=== PATIENT | female | born 1985 | race Caucasian/White ===

== ENCOUNTER 2016-07-07 16:12 | Emergency (ER) | payer BC ==
[2016-01-21 12:39] VITALS: BMI 19.3
[~2016-07-07 16:12] MED LIST: DIFLUCAN150 MG PO; FLAGYL500 MG PO; HYDROCODON-ACE1 EAC7 PO; KEFLEX500 MG PO
[2016-07-07 17:07] LABS: BASOPHILS 0.1 % (0-2); EOSINOPHILS 1.8 % (0-7); HEMATOCRIT 27.4 % (36.0-48.0); HEMOGLOBIN 9.3 g/dL (12-16); IMMATURE GRANULOCYTES 0.2 % (0-5); LYMPHOCYTES 5.9 % (15-50); MCH 32.2 pg (26.0-34.0); MCHC 33.9 g/dL (31.0-37.0); MCV 94.8 fL (80.0-100.0); MONOCYTES 4.9 % (2-11); NEUTROPHILS 87.1 % (40-80); PLATELET COUNT 245 10x3/uL (130-400); RBC 2.89 10x6/uL (4.00-5.40); RDW 13.9 % (11.5-14.5)
[2016-07-07 17:27] LABS: APPEARANCE HAZY (CLEAR); BILIRUBIN NEGATIVE (NEGATIVE); COLOR YELLOW (YELLOW); GLUCOSE NEGATIVE (NEGATIVE); KETONE NEGATIVE (NEGATIVE); LEUKOCYTE ESTERASE NEGATIVE (NEGATIVE); NITRITE NEGATIVE (NEGATIVE); PROTEIN NEGATIVE (NEGATIVE); UROBILINOGEN NORMAL (NORMAL)
[2016-07-07 17:27] LABS: HCG URINE NEGATIVE (NEGATIVE)
[2016-07-07 17:36] LABS: ALBUMIN 2.3 g/dL (3.4-5.0); ANION GAP 11.3 mmol/L (8-16); CALCIUM 7.5 mg/dL (8.5-10.1); CARBON DIOXIDE 27.5 mmol/L (21.0-32.0); POTASSIUM - SERUM 3.8 mmol/L (3.5-5.1); PROTEIN - SERUM 5.3 g/dL (6.4-8.2)
[2016-07-07 17:40] LABS: BILIRUBIN - TOTAL 0.06 mg/dL (0.2-1.3)
== END 2016-07-07 19:08 | disposition home or self-care (01) ==
LOC: D.ER 16:12
PROVIDERS: Emergency Medicine; Nurse Practitioner Family
DX: R50.9 Fever, unspecified (principal); Z93.3 Colostomy status; C20 Malignant neoplasm of rectum

== ENCOUNTER → 2017-02-11 10:48 | Outpatient (CLI) | payer BC ==
[2016-01-21 12:39] VITALS: BMI 19.3
[~2017-02-11 10:48] MED LIST changes: +MICROGESTIN FE1 EACH PO; +PROBIOTIC1 EAC1 PO; +VITAMIN B-12 BC
== END | disposition home or self-care (01) ==
LOC: D.RAD 09:15
DX: C20 Malignant neoplasm of rectum (principal)

== ENCOUNTER → 2017-02-23 09:40 | Outpatient (CLI) | payer BC ==
[2016-01-21 12:39] VITALS: BMI 19.3
== END | disposition home or self-care (01) ==
LOC: D.CT 09:40
DX: C20 Malignant neoplasm of rectum (principal)

== ENCOUNTER 2017-03-01 05:47 | Day surgery (SDC) | payer BC ==
[~2017-03-01] VITALS: Ht 152.4 cm; Wt 45.9 kg
[~2017-03-01 05:47] MED LIST changes: -MICROGESTIN FE1 EACH PO; -PROBIOTIC1 EAC1 PO; -VITAMIN B-12 BC
[2017-03-01] MEDS ORDERED: MICROGESTIN FE1 EACH PO (06:34)
[2017-03-01] MEDS ORDERED: VITAMIN B-12 BC (06:38)
[2017-03-01] MEDS ORDERED: PROBIOTIC1 EAC1 PO (06:39)
[2017-03-01 07:01] VITALS: Ht 152.4 cm; Wt 45.9 kg
[2017-03-01 07:06] LABS: BASOPHILS 0.3 % (0-2); EOSINOPHILS 19.4 % (0-7); HEMATOCRIT 41.7 % (36.0-48.0); HEMOGLOBIN 13.9 g/dL (12-16); IMMATURE GRANULOCYTES 0.2 % (0-5); LYMPHOCYTES 9.4 % (15-50); MCH 31.6 pg (26.0-34.0); MCHC 33.3 g/dL (31.0-37.0); MCV 94.8 fL (80.0-100.0); MEAN PLATELET VOLUME 9.9 fL (7.4-10.4); MONOCYTES 10.1 % (2-11); NEUTROPHILS 60.6 % (40-80); PLATELET COUNT 250 10x3/uL (130-400); RDW 12.4 % (11.5-14.5); WBC 5.8 10x3/uL (4.8-10.8)
[2017-03-01 07:22] LABS: INR 1.04 (0.85-1.17); PROTIME 13.2 SECONDS (11.6-15.0)
[2017-03-01 07:39] LABS: HCG URINE NEGATIVE (NEGATIVE)
--- NOTE | 2017-03-01 09:35 | NUR ---
PT REC'D TO ROOM VIA STRETCHER. AWAKE, ALERT, ORIENTED. FULL LIQ DIET PROVIDED.
--- NOTE | 2017-03-01 09:56 | NUR ---
DR. MARTIN IN TO SPEAK WITH PT.
--- NOTE | 2017-03-01 10:04 | NUR ---
IV D/C'D CATH INTACT.
--- NOTE | 2017-03-01 10:25 | NUR ---
D/C INSTRUCTIONS EXPLAINED TO PT. VOICED UNDERSTANDING. COPIES OF ALL GIVEN.
--- NOTE | 2017-03-01 10:30 | NUR ---
D/C'D HOME VIA W/C TO PRIVATE CAR.
--- NOTE | 2017-03-10 13:26 | OP ---
PATIENT NAME: MARIO VICTOR MEDICAL RECORD: [id number] :85 LOCATION:D.OPS ADMISSION DATE: SURGEON: SUREKHA MARTIN MD DATE OF OPERATION: 03/01/2017 PREOPERATIVE DIAGNOSIS: History of rectal cancer in need of a surveillance lower endoscopy. POSTOPERATIVE DIAGNOSIS: History of rectal cancer in need of a surveillance lower endoscopy with no evidence of colonic polyps or masses. PROCEDURE: Total colonoscopy to cecum. SURGEON: Surekha Martin MD HOSPICE ADMITTING CLERK: None. ESTIMATED BLOOD LOSS: Minimal. ANESTHESIA: IV sedation. COMPLICATIONS: None. The risks, possible complications, and alternatives to the procedure were explained to the patient. She elects to proceed. The indication for the anesthesia staff being present during the procedure includes anxiety regarding the procedure. DESCRIPTION OF PROCEDURE: The patient was conveyed to the GI lab electively on 03/01/2017. IV sedation was induced by anesthesia staff. The patient was placed in the supine position. A colonoscope was inserted through the left lower quadrant stoma. It was easily advanced to the cecum. The prep was excellent. I slowly withdrew the endoscope. I irrigated and aspirated extensively. These were regular imaging as well as narrow band imaging. I noted no colonic polyps or masses. I dragged the folds. The pullback was greater than 18-minute pullback. The patient was then conveyed back to the outpatient department. I will plan for her next surveillance colonoscopy to take place in 3 years. TRANSINT:[id number] Voice Confirmation ID: [id number] DOCUMENT ID: [id number] SUREKHA MARTIN MD at 1326 CC: ALDO MCMAHON MD and LAUREN ESQUEDA MD [id number] DICTATION DATE: 03/01/17 0932 FRYLINE ATTENDANT: 03/01/17 1103 [facility] 03/01/17 [place] [address]
--- NOTE | 2017-03-10 13:26 | HP ---
PATIENT: MARIO VICTOR MEDICAL RECORD: [id number] ACCOUNT: [id number] LOCATION:[facility] : 85 ADMISSION DATE: 03/01/17 HISTORY AND PHYSICAL EXAMINATION CHIEF COMPLAINT: Colonoscopy. HISTORY OF PRESENT ILLNESS: The patient has had a history of rectal cancer. She has undergone an abdominal perineal resection. We are going to plan to perform a surveillance colonoscopy through her stoma. The risks, possible complications and alternatives to procedure were explained to the patient. She elects to proceed. HOME MEDICINES: Iron, multivitamin. ALLERGIES: IVP DYE. SOCIAL HISTORY: Nonsmoker. PAST MEDICAL AND SURGICAL HISTORY: As described above. REVIEW OF SYSTEMS: No CVA or seizures. No diabetes or thyroid problems. PHYSICAL EXAMINATION: GENERAL: The patient does not appear acutely ill. He does not appear chronically ill. VITAL SIGNS: Reviewed. HEAD: External ears appear normal. EYES: Extraocular movements are intact. NECK: Trachea is midline. CHEST: No intercostal retractions. PULMONARY: Nonlabored, no stridor. IMPRESSION: History of rectal cancer, for surveillance colonoscopy. PLAN: Will be surveillance colonoscopy through her stoma. TRANSINT:[id number] Voice Confirmation ID: [id number] DOCUMENT ID: [id number] SUREKHA MARTIN MD at 1326 CC: ALDO MCMAHON MD and LAUREN ESQUEDA MD [id number] DICTATION DATE: 03/01/17 0845 ROOMING HOUSE KEEPER: 03/01/17 0925 [facility] 03/01/[address] [address]
== END 2017-03-01 10:35 | disposition home or self-care (01) ==
LOC: D.OPS 05:47
PROVIDERS: Anesthesiology; Surgery
DX: Z12.11 Encounter for screening for malignant neoplasm of colon (principal); Z85.048 Personal history of other malignant neoplasm of rectum, rectosigmoid junction, and anus; Z01.812 Encounter for preprocedural laboratory examination

== ENCOUNTER → 2017-12-02 08:02 | Outpatient (CLI) | payer BC ==
[2017-03-01 07:01] VITALS: BMI 19.7
[~2017-12-02 08:02] MED LIST changes: +MICROGESTIN FE1 EACH PO; +PROBIOTIC1 EAC1 PO; +VITAMIN B-12 BC
== END | disposition home or self-care (01) ==
LOC: D.CT 08:00
DX: C20 Malignant neoplasm of rectum (principal)

== ENCOUNTER → 2018-09-01 08:45 | Outpatient (CLI) | payer BC ==
[2017-03-01 07:01] VITALS: BMI 19.7
== END | disposition home or self-care (01) ==
LOC: D.CT 08:45
PROVIDERS: ATTEND Legal Medicine
DX: R97.0 Elevated carcinoembryonic antigen [CEA] (principal); C20 Malignant neoplasm of rectum

== ENCOUNTER → 2019-02-16 08:37 | Outpatient (CLI) | payer BC ==
[2017-03-01 07:01] VITALS: BMI 19.7
== END | disposition home or self-care (01) ==
LOC: D.CT 02-14 08:30
PROVIDERS: ATTEND Legal Medicine
DX: R97.0 Elevated carcinoembryonic antigen [CEA] (principal); C20 Malignant neoplasm of rectum

== ENCOUNTER → 2019-08-07 20:27 | Outpatient (CLI) | payer BC ==
[2017-03-01 07:01] VITALS: BMI 19.7
[2019-08-07 21:37] LABS: HEMATOCRIT 46.3 % (36.0-48.0); HEMOGLOBIN 14.9 g/dL (12-16); IMMATURE GRANULOCYTES 0.1 % (0-5); MCH 31.6 pg (26.0-34.0); MCHC 32.2 g/dL (31.0-37.0); MCV 98.1 fL (80.0-100.0); PLATELET COUNT 282 10x3/uL (130-400); RBC 4.72 10x6/uL (4.00-5.40); RDW 13.1 % (11.5-14.5); WBC 9.4 10x3/uL (4.8-10.8)
[2019-08-08 13:58] LABS: EOSINOPHILS 9 % (0-7); LYMPHOCYTES 10 % (15-50); MONOCYTES 3 % (2-11); NEUTROPHILS 77 % (40-80); PLATELET ESTIMATE NORMAL
== END | disposition home or self-care (01) ==
LOC: D.LABREF 20:27
PROVIDERS: ATTEND Legal Medicine
DX: C20 Malignant neoplasm of rectum (principal)

== ENCOUNTER → 2019-08-17 07:33 | Outpatient (CLI) | payer BC ==
[2017-03-01 07:01] VITALS: BMI 19.7
== END | disposition home or self-care (01) ==
LOC: D.CT 07:33
PROVIDERS: ATTEND Legal Medicine
DX: C20 Malignant neoplasm of rectum (principal); J32.8 Other chronic sinusitis; R97.0 Elevated carcinoembryonic antigen [CEA]; R91.1 Solitary pulmonary nodule; L63.8 Other alopecia areata